=== PATIENT | male | born 1990 | race African-American/Black ===

== ENCOUNTER 2018-06-17 10:48 | Emergency (ER) | payer OTHER ==
[~2018-06-17] VITALS: Ht 167.6 cm; Wt 68.0 kg
[2018-06-17] MEDS ORDERED: IBUPROFEN 200 MG TAB PO SCH (11:00)
[2018-06-17] MEDS ORDERED: ONDANSETRON HCL 4 MG ORAL DISINTEGRATING TAB PO ONE (11:00)
[2018-06-17] MEDS ORDERED: ACETAMINOPHEN 325 MG TAB PO ONE (11:30)
== END 2018-06-17 13:39 | disposition home or self-care (01) ==
LOC: EDSEX 10:48 → FSED 10:48
DX: R05 Cough (principal); R11.0 Nausea; J02.9 Acute pharyngitis, unspecified
CPT/HCPCS: 83518; 87400; 99283; Q0162